=== PATIENT | female | born 1960 | race Hispanic/Latino ===

== ENCOUNTER 2021-10-05 06:44 | Observation (INO) | payer OTHER ==
[2021-10-03 17:23] LABS: BASOPHILS % (AUTO) 0.6 % (0.0-5.0); EOSINOPHILS % (AUTO) 3.2 % (0.0-8.0); HEMATOCRIT 41.1 % (36-48); MEAN CORPUSCULAR HGB CONC 33.3 g/dL (32.0-36.0); MEAN CORPUSCULAR VOLUME 87.1 fL (79-99); MONOCYTES % (AUTO) 6.3 % (3.0-13.0); NEUTROPHILS % (AUTO) 52.3 % (40.0-77.0); PLATELET COUNT (AUTO) 215 K/uL (130-400); RED BLOOD CELL COUNT(AUTO) 4.72 MIL/uL (4.00-5.50); RED CELL DISTRIBUTION WIDTH 14.1 % (11.0-15.5); WHITE BLOOD COUNT (AUTO) 5.1 K/uL (4.8-10.8)
[2021-10-03 17:51] LABS: CREATININE 0.6 mg/dL (0.5-1.5); POTASSIUM 4.2 mmol/L (3.5-5.1)
[2021-10-04 09:27] VITALS: BP 151/65
[2021-10-05] VITALS (24 sets, daily range): BP systolic 119–165; BP diastolic 66–92
[~2021-10-05] VITALS: Ht 157.5 cm; Wt 76.2 kg
[~2021-10-05 06:44] MED LIST: BENA-8 PO; EMPA1TAB7 PO; FERR-72 PO; INSU100V46 SQ; INSU300I SQ; MV-M1TAB20 PO; ROSU5TAB12 PO; SEMA1PEN3 SQ
[2021-10-05] MEDS ORDERED: CEFAZOLIN SODIUM 1 GM VIAL ONE (07:29)
[2021-10-05] MEDS ORDERED: LACTATED RINGERS 1000ML 1,000 ML IV ONE (07:29)
[2021-10-05] MEDS ORDERED: PROPOFOL 10 MG/ML 20ML VIAL IV ONE (08:35)
[2021-10-05] MEDS ORDERED: MIDAZOLAM HCL 1 MG/ML 2ML VIAL ONE (08:35)
[2021-10-05] MEDS ORDERED: FENTANYL CITRATE PF 50 MCG/1 ML 5ML AMP IV ONE (08:35)
[2021-10-05] MEDS ORDERED: FENTANYL CITRATE PF 50 MCG/1 ML 2ML VIAL ONE (08:35)
[2021-10-05] MEDS ORDERED: MORPHINE PF 100MG/10ML AMP IV ONE (08:37)
[2021-10-05] MEDS ORDERED: ROCURONIUM 10MG/1ML SYR 10 MG/ML ML ONE (08:50)
[2021-10-05] MEDS ORDERED: CEFAZOLIN SODIUM 2 GM VIAL IV ONE (09:10)
[2021-10-05] MEDS ORDERED: ONDANSETRON 4MG INJ ONE (09:22)
[2021-10-05] MEDS ORDERED: DEXAMETHASONE SOD PHOSPHATE 10MG/ML 1ML VIAL ONE (09:59)
[2021-10-05] MEDS ORDERED: EPHEDRINE SULFATE 50 MG/ML AMPULE ONE (10:31)
[2021-10-05] MEDS ORDERED: GLYCOPYRROLATE 1 MG/5 ML SYRINGE ONE (10:39)
[2021-10-05] MEDS ORDERED: NEOSTIGMINE 5MG/5ML SYR IV ONE (10:39)
[2021-10-05] MEDS ORDERED: ESTROGENS,CONJUGATED 0.625 MG/GM 42.5 GM VAG CRM VG ONE (10:44)
[2021-10-05] MEDS ORDERED: LABETALOL 20MG VIAL IV SCH (12:30)
[2021-10-05] MEDS ORDERED: INSULIN LISPRO SQ SCH (12:30)
[2021-10-05] MEDS ORDERED: ACETAMINOPHEN WITH CODEINE 1 TAB TAB PO PRN (13:00)
[2021-10-05] MEDS ORDERED: BISACODYL 10 MG SUPP.RECT RC PRN (13:00)
[2021-10-05] MEDS ORDERED: MEPERIDINE-PF 75 MG/ML SYG IM PRN (13:00)
[2021-10-05] MEDS ORDERED: PROMETHAZINE HCL 25 MG/ML 1ML AMPULE IM PRN ×2 (13:00)
[2021-10-05] MEDS ORDERED: DEXTROSE 5%-LACTATED RINGERS 1,000 ML IV PRN (13:00)
[2021-10-05] MEDS ORDERED: IBUPROFEN 600 MG TABLET PO PRN (13:00)
[2021-10-05] MEDS: ONDANSETRON 4MG INJ IVP PRN (14:31)
[2021-10-05] MEDS: LACTATED RINGERS 1000ML 1,000 ML IV SCH (16:16)
[2021-10-05] MEDS: CEFAZOLIN SODIUM 1 GM VIAL IVP SCH (17:13)
[2021-10-05] MEDS ORDERED: METOCLOPRAMIDE 10 MG/2 ML VIAL IVP SCH (17:30)
[2021-10-05] MEDS ORDERED: ONDANSETRON 4MG INJ IVP SCH (17:30)
[2021-10-05] MEDS: INSULIN GLARGINE 100 UNITS/ML 10 ML VIAL SQ SCH ×2 (21:00→21:18)
[2021-10-05] MEDS: DOCUSATE SODIUM 100 MG CAP PO PRN (21:18)
[2021-10-05] MEDS: SIMETHICONE 80 MG TAB.CHEW PO PRN (21:18)
[2021-10-06] MEDS: LACTATED RINGERS 1000ML 1,000 ML IV SCH (00:34)
[2021-10-06] MEDS: CEFAZOLIN SODIUM 1 GM VIAL IVP SCH (01:13)
[2021-10-06 03:26] VITALS: BP 127/73
[2021-10-06] MEDS: ONDANSETRON 4MG INJ IVP PRN (03:54)
[2021-10-06] MEDS ORDERED: LORATADINE 10 MG TABLET PO PRN (04:00)
[2021-10-06] MEDS ORDERED: LORATADINE/PSEUDOEPHED 5/120 MG 1 EACH TAB.SR.12H PO PRN (04:00)
[2021-10-06 05:10] LABS: HEMATOCRIT 36.8 % (36-48); MEAN CORPUSCULAR HEMOGLOBIN 28.8 pg (27.0-33.0); MEAN CORPUSCULAR HGB CONC 32.3 g/dL (32.0-36.0); MEAN CORPUSCULAR VOLUME 89.1 fL (79-99); RED BLOOD CELL COUNT(AUTO) 4.13 MIL/uL (4.00-5.50)
[2021-10-06 08:00] VITALS: BP 132/74
[2021-10-06] MEDS ORDERED: SYNJARDY PO SCH (09:00)
[2021-10-06] MEDS ORDERED: ATORVASTATIN 10 MG TABLET PO SCH (09:00)
[2021-10-06] MEDS ORDERED: BENAZEPRIL HCL 10 MG TABLET PO SCH (09:00)
[2021-10-06] MEDS ORDERED: FERROUS SULFATE 325 MG TABLET.DR PO SCH (09:00)
[2021-10-06] MEDS ORDERED: MULTIVITAMINS/MINERALS/IRO TAB PO SCH (09:00)
[2021-10-06] MEDS: DOCUSATE SODIUM 100 MG CAP PO PRN (09:05)
[2021-10-06] MEDS: SIMETHICONE 80 MG TAB.CHEW PO PRN (09:05)
[2021-10-12] MEDS ORDERED: OZEMPIC 1 MG SQ SCH (09:00)
== END 2021-10-06 11:50 | disposition home or self-care (01) ==
LOC: DAH 06:44 → DAHIP 06:45 → DAH 06:45 → WSH 12:00
PROVIDERS: ADMIT Obstetrics & Gynecology; ATTEND Obstetrics & Gynecology
DX: N81.2 Incomplete uterovaginal prolapse (principal); Z20.822 Contact with and (suspected) exposure to COVID-19; N90.89 Other specified noninflammatory disorders of vulva and perineum; Z90.710 Acquired absence of both cervix and uterus; Z79.899 Other long term (current) drug therapy; Z98.890 Other specified postprocedural states
CPT/HCPCS: 36415 ×2; 57260; 58260; 80048; 82948 ×6; 85025; 85027; 86850; 86900; 86901; 87635; 96374; 96375; 96376; A4215; A4216; A4221; A4222; A4223 ×2; A4344 ×2; A4351; A4600; A4649; A4663; A5113; C9803; G0378 ×24; J0690 ×4; J1100; J2250; J2274; J2405 ×3; J2704; J2710; J2765; J3010; J3490 ×2; J7030; J7120 ×2